=== PATIENT | female | born 1955 | race Caucasian/White ===

== ENCOUNTER 2025-05-26 13:49 | Emergency (ER) | payer MEDICARE, BC ==
[2025-05-26] MEDS ORDERED: Sodium Chloride 0.9% 10 ML Syringe FLUSH PRN (13:59)
[2025-05-26 14:24] LABS: PLATELET COUNT,PLT 107 x10^3/uL (130-400); RED BLOOD CELL COUNT 3.94 x10^6/uL (4.00-5.50); WHITE BLOOD CELL COUNT,WBC 8.6 x10^3/uL (4.0-10.0)
[2025-05-26 14:45] LABS: BAND PERCENT MAN 1 % (0-6); EOSINOPHILS ABSOLUTE MAN 0.1 x10^3/uL (0.0-0.5); EOSINOPHILS PERCENT MAN 1 % (0-4); LYMPHOCYTES ABSOLUTE MAN 1.5 x10^3/uL (1.0-4.8); LYMPHOCYTES PERCENT MAN 14 % (25-50); MONOCYTES ABSOLUTE MAN 2.1 x10^3/uL (0.0-0.8); MONOCYTES PERCENT MAN 24 % (2-11); NEUTROPHILS ABSOLUTE MAN 5.0 x10^3/uL (1.8-7.7); SEG NEUTROPHILS PERCENT MAN 57 % (50-80)
[2025-05-26 14:46] LABS: PLATELET COUNT ESTIMATE DECREASED
[2025-05-26 14:50] LABS: A/G RATIO 0.95; ALANINE AMINOTRANSFERASE,ALT 28 U/L (14-59); ASPARTATE AMNIOTRANSFERASE,AST 25 U/L (15-37); BILIRUBIN TOTAL 0.6 mg/dL (0.2-1.0); BLOOD UREA NITROGEN,BUN 20 mg/dL (7-18); CARBON DIOXIDE,CO2 31 mmol/L (21-32); CHLORIDE,CL 105 mmol/L (98-107); CREATININE 1.2 mg/dL (0.55-1.02); GLUCOSE RANDOM 93 mg/dL (70-99); POTASSIUM,K 3.6 mmol/L (3.5-5.1); PROTEIN TOTAL,TP 7.2 g/dL (6.4-8.2); SODIUM,NA 144 mmol/L (136-145)
[2025-05-26 14:51] LABS: ESTIMATED GFR 49 mL/min (>=60)
== END 2025-05-26 17:17 | disposition home or self-care (01) ==
LOC: VM.ED 13:49
DX: I21.4 Non-ST elevation (NSTEMI) myocardial infarction (principal); R55 Syncope and collapse; Z79.82 Long term (current) use of aspirin; Z79.899 Other long term (current) drug therapy
CPT/HCPCS: 36415; 80053; 83735; 84484; 85025; 93005; 93010; 96360; 99284; 99284-25; J7030